=== PATIENT | male | born 1975 | race Caucasian/White ===

== ENCOUNTER 2018-03-15 13:02 | Emergency (ER) | payer BC ==
--- NOTE | 2018-03-15 13:08 | EDPHY ---
H & P Time Seen by Provider: 03/15/18 13:05 Constitutional: Initial Vital Signs Heart Rate 58 L 03/15/18 13:16 Respiratory Rate 16 03/15/18 13:16 Blood Pressure 133/72 H 03/15/18 13:16 O2 Sat (%) 98 03/15/18 13:16 O2 Delivery Mode [Post Room Air Procedure 2nd] O2 Delivery Mode [Post Non-Rebreather Mask Procedure 1st] O2 Delivery Mode [Procedural Non-Rebreather Mask 1st] O2 Delivery Mode [.Immediate Room Air Pre-Procedure] O2 Delivery Mode Nasal Cannula O2 (L/minute) [Post Procedure 15 1st] O2 (L/minute) [Procedural 1st] 15 O2 (L/minute) 2 Allergies/Adverse Reactions: No Known Allergies Allergy (Unverified 03/15/18 13:16) Home Medications: Medication Instructions Recorded Hydrocodone/APAP 5/325 [Remer 1 - 2 each PO Q4-6PRN PRN #20 tab 03/15/18 5/325] Ondansetron Odt [Zofran Odt 4 mg 4 mg PO Q4 PRN #10 tab 03/15/18 (RX)] Medical Decision Making - Diagnostics Imaging Results: Imaging Impressions Shoulder X-Ray 03/15/18 13:14 Impression: Anterior shoulder dislocation. ED Course/Re-evaluation: CHIEF COMPLAINT: Dislocated shoulder HISTORY OF PRESENT ILLNESS: The patient is a 42 y/o male arriving via EMS for a dislocated shoulder. He was walking with his daughter in a backpack when he slipped and fell, landing on his left arm. He believes he may have broken the arm in addition to dislocating the shoulder. He denies history of shoulder injuries or shoulder surgeries. He has an associated bloody nose and shoulder pain. He denies any other injuries or associated symptoms. REVIEW OF SYSTEMS: A comprehensive 10 system review of systems is otherwise negative aside from elements mentioned in the history of present illness and medical decision making. PHYSICAL EXAM: HR, BP, O2 Sat, RR. Temp noted General Appearance: Alert, well hydrated, appropriate, and non-toxic appearing. He keeps the left arm propped and not moving. Head: Atraumatic without scalp tenderness or obvious injury Eyes: Pupils equal, round, reactive to light and accommodation, EOMI, no trauma , no injection. Ears: Clear bilaterally, no perforation, normal landmarks Nose: Dried blood around the nose. No rhinorrhea, clear. Respiratory: No retractions, no distress. Musculoskeletal: Left arm is propped by his side. Indentation to the lateral deltoid. Humeral head is visible and palpable anteriorly to the glenoid capsule. Range of motion not tested secondary to clear dislocation. Normal range of motion of all other extremities. Neurological: Alert, appropriate, and interactive. Grossly non-focal. Skin: No rashes, good turgor, no nodules on palpation. Past medical history: Denies Past surgical history: Denies Family history: Non-contributory Social history: Lives in [place], has a daughter, , and daughter at bedside DIAGNOSTICS/PROCEDURES/CRITICAL CARE TIME: Study: Left shoulder x-ray Indication: Dislocated shoulder Results: After viewing the images myself on the PACS system. My interpretation of the images is: anteriorly and inferiorly dislocated shoulder. The radiologist interpretation is in agreement. Procedure: Procedural sedation Indication: Joint Relocation A pre-sedation evaluation was completed on the patient at what time13:50. The patient has an ASA class 1 airway and modified Mallampati class 1 airway. Patient is an appropriate candidate for procedural sedation. The risks, benefits, alternatives of sedation were discussed with the patient and his . Consent was obtained. The patient was pre-oxygenated with 100% O2 on a [id number] and moved to the procedure room where airway rescue equipment is available. A time out was observed. The patient was sedated with 75mg propofol. The patient was monitored with continuous pulse oximetry, quality assurance monitor, and end tidal CO2. There were no complications and no hypoxemia. The patient tolerated the procedure well and returned to baseline. I remained at the bedside for the sedation. The total time I spent in the procedural sedation was 15 minutes. Procedure: Reduction of dislocated shoulder Time-out completed immediately before the procedure. IV established previously. O2 administered. Placed on pulse oximeter and [id number]. Neurovascular exam intact pre-procedure. Given 75 propofol for pain and sedation. The left shoulder was reduced using traction-countertraction. Reassessed post-procedure. Neurovascular status intact- normal median, radial, ulnar and axillary nerve motor and sensory exam. Exam indicated reduction. Confirmed reduction on X-ray. Arm sling applied. The procedure was performed by myself, Dr. Camacho Sena. Study: Left shoulder x-ray after dislocation reduction Indication: Reduction of dislocation Results: After viewing the images myself on the PACS system. My interpretation of the images is: reduced shoulder dislocation. The radiologist interpretation is reduced shoulder dislocation. DIFFERENTIAL DIAGNOSIS: The differential diagnosis for this patient's condition included but was not limited to dislocated shoulder, fractured glenoid capsule, and fractured humerus. MEDICAL DECISION MAKING: The patient presents with a dislocated shoulder. He believes he may also have broken the arm. His pain is currently well controlled with ketamine given by EMS in transport. Plan for x-ray of the left shoulder to evaluate for possible fracture. 13:30 - X-ray does not indicate fracture. His pain worsened so he was given 50 mg of ketamine for pain. I attempted to reduce the shoulder without sedation with approval of his as he was pain free and slightly groggy. The muscles were too tense for the reduction. I will reduce the shoulder under sedation with propofol to relax the muscles. 13:50 - The patient has been moved to a trauma room and sedated. The patient was sedated and the shoulder was reduced. I waited with the patient as he came out of sedation. I confirmed reduction with x-ray and I discharged the patient with a referral to ortho near his house. The patient and his agree to this course of action. - Data Points Medications Given: Discontinued Medications Propofol (Diprivan) 75 mg IVP EDNOW ONE Stop: 03/15/18 13:56 Last Admin: 18 13:56 Dose: 75 mg Departure - Departure Disposition: Home, Routine, Self-Care Clinical Impression: Anterior shoulder dislocation Qualifiers: Encounter type: initial encounter Laterality: left Qualified Code(s): S43.015A - Anterior dislocation of left humerus, initial encounter Condition: Good Instructions: Shoulder Dislocation (ED) Additional Instructions: 1. Please follow up with an orthopedic surgeon regarding your dislocation. Do not move or use your arm until you have seen the surgeon. 2. Return to the emergency department for any worsening of condition including numbness or discoloration of the arm. Referrals: Roberto Reilly [Other] - As per Instructions Prescriptions: Hydrocodone/APAP 5/325 [Remer 5/325] 1 - 2 each PO Q4-6PRN PRN #20 tab PRN Reason: Pain, Moderate Ondansetron Odt [Zofran Odt 4 mg (RX)] 4 mg PO Q4 PRN #10 tab PRN Reason: Nausea/Vomiting, Use 1st Report Scribed for: Camacho Sena Report Scribed by: Molly Rodriguez Date of Report: 03/15/18 Time of Report: 14:22
[2018-03-15] MEDS ORDERED: KETAMINE 200 MG/20 ML VIAL ONE (13:30)
[2018-03-15] MEDS ORDERED: PROPOFOL 200 MG/20 ML VIAL ONE (13:53)
[2018-03-15] MEDS ORDERED: PROPOFOL 200 MG/20 ML VIAL IVP ONE (13:55)
[2018-03-15 14:42] VITALS: BP 150/78
== END 2018-03-15 14:42 | disposition home or self-care (01) ==
PROC: 0RSKXZZ Reposition Left Shoulder Joint, External Approach (ICD-10-PCS; principal; 2018-03-15)
DX: S43.015A Anterior dislocation of left humerus, initial encounter (principal); W01.0XXA Fall on same level from slipping, tripping and stumbling without subsequent striking against object, initial encounter; Y93.01 Activity, walking, marching and hiking; Y92.9 Unspecified place or not applicable; Y99.8 Other external cause status
CPT/HCPCS: J2704; L3980